=== PATIENT | female | born 1945 | race Caucasian/White ===

== ENCOUNTER 2016-07-06 08:31 | Day surgery (SDC) | payer MEDICARE, OTHER ==
[~2016-07-06 08:31] MED LIST: KETOROLAC TROMETHAMINE 0.45% 4 DROP/0.4 ML DROPERETTE OD PRN
[2016-07-06] MEDS ORDERED: MIDAZOLAM 2 MG/2 ML INJ ONE (08:40)
[2016-07-06] MEDS: BESIFLOXACIN HCL 0.6% OPH SUSP 5 ML BOTTLE OD PRN ×4 (09:25→10:40)
[2016-07-06] MEDS: TETRACAINE HCL 0.5% OPH SOLN 0.6 ML DROPERETTE OD PRN ×2 (09:25→10:06)
[2016-07-06] MEDS: CYCLOPENTOLATE 0.2%/PHENYLEPHRINE 1% OPH SOLN 2 ML OD PRN ×3 (09:25→09:38)
[2016-07-06] MEDS: TROPICAMIDE 1% OPH SOLN 3 ML OD PRN ×3 (09:25→09:38)
[2016-07-06] MEDS: LIDOCAINE 4% INJ/PF (40 MG/ML) 5 ML AMPUL OD PRN ×2 (10:09)
[2016-07-06] MEDS: BUPIVACAINE HCL 0.75% INJ/PF (7.5 MG/1 ML) 10 ML SDV OD PRN ×2 (10:09)
[2016-07-06] MEDS: CHONDR SU A NA/HYALUR INTRAOC KIT (SURGICARE) ONE ×2 (10:25)
[2016-07-06] MEDS: PHENYLEPHRINE/KETOROLAC 1%-0.3% 4 ML VIAL ONE ×2 (10:25)
--- NOTE | 2016-07-16 13:53 | DISCHARGE SUMMARY E ---
Discharge Summary NAME: KAROL WEST : 1945 AGE: 70Y ADMITTED: 07/06/2016 DISCHARGED: 07/06/2016 PREOPERATIVE DIAGNOSIS: CATARACT, RIGHT EYE. POSTOPERATIVE DIAGNOSIS: CATARACT, RIGHT EYE. HOSPITAL COURSE: Patient is a 70-year-old lady who underwent uneventful cataract extraction with intraocular lens implant, right eye, on 07/06/2016. DISPOSITION: She will be discharged to home. She was instructed to resume preoperative medications; take Tylenol as needed for discomfort; to keep her eye shielded; to use Besivance, Durezol, and Ilevro at 3:00 p.m. and 8:00 p.m.; and to follow up in my office in 1 day. DICTATING PHYSICIAN: MOSES ALDRICH M.D. BGEDIT [id number] PHY#: [id number] ID: [id number] JOB#: [id number] ACCT: [id number] cc:MOSES ALDRICH M.D. >
--- NOTE | 2016-07-16 13:54 | OPERATIVE REPORT E ---
Operative Report NAME: KAROL WEST : 1945 AGE: 70Y DATE OF SURGERY: ROOM: PREOPERATIVE DIAGNOSIS: CATARACT, RIGHT EYE. POSTOPERATIVE DIAGNOSIS: CATARACT, RIGHT EYE. PROCEDURE PERFORMED: Phacoemulsification with ReSTOR intraocular lens, right eye. SURGEON: MOSES ALDRICH M.D. ANESTHESIA: Topical with MAC. INDICATIONS FOR SURGERY: Difficulty reading words on TV and driving at night. Best corrected visual acuity: 20/50. DESCRIPTION OF PROCEDURE: The patient was brought to the operating room and placed on the operative table. Following tetracaine drops, topical anesthesia was administered. This consisted of instrument wipe pledgets soaked in a solution of 4% Xylocaine mixed with 0.75% Marcaine in a 1:2 ratio. A 2 x 1 cm pledget was placed in the superior fornix. A 1 x 1 cm pledget was placed in the inferior fornix. The eye was patched shut for 5 minutes. The patch was removed. The eye was sterilely prepped and draped in the usual manner. Lid speculum was placed in the eye. The pledgets were removed, 4-0 black silk sutures were placed around the superior and the inferior rectus muscles to be used as traction. A conjunctival peritomy was made at the 10 o'clock position. Hemostasis was obtained with bipolar cautery. A posterior limbal groove was created using a crescent knife and dissected anteriorly towards the cornea. A sharp point blade was used to create a paracentesis site at the 2 o'clock position. A 2.4 mm keratome was used to enter the anterior chamber through the groove. Viscoelastic was injected into the anterior chamber. An anterior capsulotomy was performed using Utrata forceps in a capsulorrhexis fashion. Hydrodissection and hydrodelineation were performed. Phacoemulsification was performed in [id number]-[id number]-[id number] technique. A total of 1.02 minutes total phaco time was used. Following this, the I/A unit was used to remove residual cortex. Viscoelastic was injected into the capsular bag. Intraocular lens Model [id number], 21.5 diopter, serial number [id number] was placed in the capsular bag. The I/A unit was used to removed residual viscoelastic. The wound was seen to be watertight under high and low pressure, and no sutures were placed. The intraocular lens was well centered. The pressure was adjusted in the eye to normal pressure. The 4-0 black silk sutures and lid speculum were removed. The eye was shielded after Besivance drops were placed. The patient tolerated the procedure well and was sent to the recovery room in good condition. DICTATING PHYSICIAN: MOSES ALDRICH M.D. BGEDIT 1352 PHY#: [id number] ID: [id number] JOB#: [id number] ACCT: [id number] cc:MOSES ADLRICH M.D. >
== END 2016-07-06 11:25 | disposition home or self-care (01) ==
LOC: SC 08:31
PROVIDERS: ATTEND Ophthalmology
PROC: 08RJ3JZ Replacement of Right Lens with Synthetic Substitute, Percutaneous Approach (ICD-10-PCS; principal; 2016-07-06 10:00)
DX: H25.813 Combined forms of age-related cataract, bilateral (principal); E78.00 Pure hypercholesterolemia, unspecified; I10 Essential (primary) hypertension; H04.123 Dry eye syndrome of bilateral lacrimal glands; Z79.899 Other long term (current) drug therapy
CPT/HCPCS: 66984; V2788; J2250; J3490 ×3; A9270; C9447; 142

== ENCOUNTER 2016-08-03 11:08 | Day surgery (SDC) | payer MEDICARE, OTHER ==
[~2016-08-03 11:08] MED LIST changes: +BUPIVACAINE HCL 0.75% INJ/PF (7.5 MG/1 ML) 10 ML SDV OS PRN; -KETOROLAC TROMETHAMINE 0.45% 4 DROP/0.4 ML DROPERETTE OD PRN; +KETOROLAC TROMETHAMINE 0.45% 4 DROP/0.4 ML DROPERETTE OS PRN; +LIDOCAINE 4% INJ/PF (40 MG/ML) 5 ML AMPUL OS PRN; +MIDAZOLAM 2 MG/2 ML INJ ONE
[2016-08-03] MEDS: BESIFLOXACIN HCL 0.6% OPH SUSP 5 ML BOTTLE OS PRN ×4 (11:37→12:46)
[2016-08-03] MEDS: CYCLOPENTOLATE 0.2%/PHENYLEPHRINE 1% OPH SOLN 2 ML OS PRN ×3 (11:37→11:58)
[2016-08-03] MEDS: TROPICAMIDE 1% OPH SOLN 3 ML OS PRN ×3 (11:37→11:58)
[2016-08-03] MEDS: TETRACAINE HCL 0.5% OPH SOLN 0.6 ML DROPERETTE OS PRN ×2 (11:38→11:58)
[2016-08-03] MEDS ORDERED: EPINEPHRINE INJ/PF 1 MG/1 ML AMPULE ONE (11:41)
[2016-08-03] MEDS ORDERED: CHONDR SU A NA/HYALUR INTRAOC KIT (SURGICARE) ONE (11:42)
[2016-08-03] MEDS ORDERED: MIDAZOLAM 2 MG/2 ML INJ ONE (12:12)
--- NOTE | 2016-08-03 13:09 | [facility] OPERATIVE REPORT E ---
[facility] Operative Report NAME: KAROL WEST AGE: 70Y DATE OF SURGERY: 08/03/2016 ROOM: PREOPERATIVE DIAGNOSIS: Cataract, left eye. POSTOPERATIVE DIAGNOSIS: Cataract, left eye. PROCEDURE PERFORMED: Phacoemulsification with ReSTOR intraocular lens, left eye. SURGEON: Malka Aldrich MD ANESTHESIA: Topical with MAC. INDICATIONS FOR SURGERY: Difficulty reading small print and glare at night. Best corrected visual acuity 20/40. PROCEDURE: The patient was brought to the operating room and placed on the operative table. Following tetracaine drops, topical anesthesia was administered. This consisted of instrument wipe pledgets soaked in a solution of 4% Xylocaine mixed with 0.75% Marcaine in a 1:2 ratio. A 2 x 1 cm pledget was placed in the superior fornix. A 1 x 1 cm pledget was placed in the inferior fornix. The eye was patched shut for 5 minutes. The patch was removed. The eye was sterilely prepped and draped in the usual manner. Lid speculum was placed in the eye. The pledgets were removed. 4-0 black silk sutures were placed around the superior and the inferior rectus muscles to be used as traction. A conjunctival peritomy was made at the 10 o'clock position. Hemostasis was obtained with bipolar cautery. A posterior limbal groove was created using a crescent knife and dissected anteriorly towards the cornea. A sharp point blade was used to create a paracentesis site at the 2 o'clock position. A 2.4 mm keratome was used to enter the anterior chamber through the groove. Viscoelastic was injected into the anterior chamber. An anterior capsulotomy was performed using Utrata forceps in a capsulorrhexis fashion. Hydrodissection and hydrodelineation were performed. Phacoemulsification was performed in pwfwxf-qvz-pviwbyi technique. Total phaco time 31 seconds. Following this, the I/A unit was used to remove residual cortex. Viscoelastic was injected into the capsular bag. Intraocular lens model [id number], 21.5 diopters, serial number [id number] was placed in the capsular bag. The I/A unit was used to remove residual viscoelastic. The wound was seen to be watertight under high and low pressure, and no sutures were placed. The intraocular lens was well centered. The pressure was adjusted in the eye to normal pressure. The 4-0 black silk sutures and lid speculum were removed. The eye was shielded after Besivance drops were placed. The patient tolerated the procedure well and was sent to the recovery room in good condition. DICTATING PHYSICIAN: MALKA ALDRICH M.D. [id number] PHY#: [id number] ID: [id number] JOB#: [id number] ACCT: [id number] cc:MALKA ALDRICH M.D. >
--- NOTE | 2016-08-03 13:14 | [facility] DISCHARGE SUMMARY E ---
[facility] Discharge Summary NAME: KAROL WEST AGE: 70Y ADMITTED: 08/03/2016 DISCHARGED: 08/03/2016 PREOPERATIVE DIAGNOSIS: Cataract, left eye. POSTOPERATIVE DIAGNOSIS: Cataract, left eye. HOSPITAL COURSE: The patient is a 70-year-old lady who underwent uneventful cataract extraction with intraocular lens implant, left eye, on 08/03/2016. She will be discharged to home. She was instructed to resume preoperative medications, take Tylenol as needed for discomfort, to keep her eye shielded, to use Besivance, Durezol, and Ilevro at 3 p.m. and 8 p.m., and to followup in my office in 1 day. DICTATING PHYSICIAN: MOSES ALDRICH M.D. [id number] PHY#: [id number] ID: [id number] JOB#: [id number] ACCT: [id number] cc:MOSES ALDRICH M.D. >
== END 2016-08-03 13:31 | disposition home or self-care (01) ==
LOC: SC 11:08
PROVIDERS: ATTEND Ophthalmology
PROC: 08RK3JZ Replacement of Left Lens with Synthetic Substitute, Percutaneous Approach (ICD-10-PCS; principal; 2016-08-03 12:30)
DX: H25.812 Combined forms of age-related cataract, left eye (principal); Z96.1 Presence of intraocular lens; H43.811 Vitreous degeneration, right eye; I10 Essential (primary) hypertension; Z79.899 Other long term (current) drug therapy
CPT/HCPCS: 66984; V2788; J2250; J3490 ×3; A9270; J0171; 142